=== PATIENT | male | born 1960 | race Caucasian/White ===

== ENCOUNTER 2021-06-07 09:55 | Outpatient (RCR) | payer OTHER, SELFPAY ==
--- NOTE | 2021-06-07 11:03 | PTOPEVAL ---
Thank you for referring Julio Rosado to [facility].? The patient is scheduled to be seen for therapy? ____x/week for ___ weeks. Please review, sign, date and return this plan of care STAR. I agree with and certify that the following plan of care is medically necessary. Referring Physician Date Admitting Provider: Attending Provider: Cole Lea, MD Referring Provider: *PT Outpatient Evaluation Start: 06/07/21 09:58 Freq: Status: Active Protocol: Document 06/07/21 10:04 [facility] (Rec: 06/07/21 10:59 [facility] [id number]) Therapy Assessment Status Assessment Status Assessment Status Evaluation Evaluation Information Problem Diagnosis lower back pain, bilateral LE numbness Onset 05/24/21 Subjective Information patient reports he is coming Query Text:As Reported By Patient/ into therapy for severe Family lower back pain and numbness in the legs. 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 he reports he has been having pain for about 3-4 years. he reports his pain seems to be continuously getting worse. he reports he has to use a wall to help him stand up straight in the morning. he reports he is continuing to work. he reports he has not had any imaging taken of the lower back. he reports he did talk about having an MRI of the lower back, but nothing set up yet. he reportshe has increased pain in the lower back and increased numbness in the legs with everything. 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 he reports he is able to continue worknig and performing house hold chores pushing through his pain. he reports the numbness was in both les initially, but has only gotten worse in the R LE. he reports at times he is only able to walk about 20 feet prior to having increased
--- NOTE | 2021-06-07 11:14 | PTOPEVAL ---
Thank you for referring Julio Rosado to [facility].? The patient is scheduled to be seen for therapy? ____x/week for ___ weeks. Please review, sign, date and return this plan of care STAR. I agree with and certify that the following plan of care is medically necessary. Referring Physician Date Admitting Provider: Attending Provider: Cole Lea, MD Referring Provider: *PT Outpatient Evaluation Start: 06/07/21 09:58 Freq: Status: Active Protocol: Document 06/07/21 10:04 [facility] (Rec: 06/07/21 10:59 [facility] [id number]) Therapy Assessment Status Assessment Status Assessment Status Evaluation Evaluation Information Problem Diagnosis lower back pain, bilateral LE numbness Onset 05/24/21 Subjective Information patient reports he is coming Query Text:As Reported By Patient/ into therapy for severe Family lower back pain and numbness in the legs. 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 he reports he has been having pain for about 3-4 years. he reports his pain seems to be continuously getting worse. he reports he has to use a wall to help him stand up straight in the morning. he reports he is continuing to work. he reports he has not had any imaging taken of the lower back. he reports he did talk about having an MRI of the lower back, but nothing set up yet. he reportshe has increased pain in the lower back and increased numbness in the legs with everything. 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 he reports he is able to continue worknig and performing house hold chores pushing through his pain. he reports the numbness was in both les initially, but has only gotten worse in the R LE. he reports at times he is only able to walk about 20 feet prior to having increased
--- NOTE | 2021-08-02 16:10 | PCPTNOTE ---
patient has not been to therapy in over a month. as of this date, he will be dc'd from skilled PT services and all progress towards goals will be taken from his most recent evaluation/note. PB
== END 2021-06-21 09:05 | disposition home or self-care (01) ==
LOC: CHSPT 09:55
PROVIDERS: Visit Provider Family Medicine
DX: M54.10 Radiculopathy, site unspecified (principal)
CPT/HCPCS: 97014; 97110; 97161; G0283

== ENCOUNTER 2024-05-17 12:00 | Emergency (ER) | payer OTHER, SELFPAY ==
--- NOTE | ~2024-05-17 | CT_ITS ---
EXAMINATION: CT lumbar spine wo con DATE: 05/17/2024 12:31 INDICATION: Chronic low back pain. TECHNIQUE: Computed tomography (CT) of the lumbar spine was performed without intravenous contrast. A utomated exposure control and iterative reconstruction technique were employed. The dose-length produ ct was 921.54 mGy-cm. COMPARISON: None FINDINGS: There is 10 degrees levoscoliosis of lumbar spine. There is mild chronic anterior wedging o f T12 vertebral body. There are chronic bilateral L5 pars defects. There is severely decreased disc h eight at L2-L3, mildly decreased disc height at L3-L4, severely decreased disc height at L4-L5, and m oderately decreased disc height at L5-S1. Osseous central spinal canal is developmentally small. The following disc levels are specifically discussed: L1-L2: The disc is bulging. There is moderate bilateral facet joint osteoarthritis. There is mild marnie ateral neural foraminal stenosis. There is mild central canal stenosis. L2-L3: The disc is bulging. There is moderate bilateral facet joint osteoarthritis. There is moderate right and mild left neural foraminal stenosis. There is moderate central canal stenosis. L3-L4: The disc is bulging. There is moderate right and mild left facet joint osteoarthritis. There i s mild bilateral neural foraminal stenosis. There is mild central canal stenosis. L4-L5: The disc is bulging. There is severe bilateral facet joint osteoarthritis. There is moderate b ilateral neural foraminal stenosis. There is mild central canal stenosis. L5-S1: The disc is bulging. There is severe bilateral facet joint osteoarthritis. There is moderate b ilateral neural foraminal stenosis. There is no central canal stenosis. IMPRESSION: 1. Severe lumbar spondylosis. 2. Lumbar levoscoliosis. 3. Chronic bilateral L5 pars defects. Reviewed, dictated and finalized at location A.
[2024-05-17 12:02] VITALS: BP 122/83; PULSE 81; RESP 20; TEMP 36.3; O2SAT 96
--- NOTE | 2024-05-17 12:16 | ED.GENADULT ---
HPI - General Adult General Chief complaint: Back Pain/Injury Stated complaint: back pain History of Present Illness HPI narrative: This is a 63-year-old male presenting with back pain. Patient says he has had back pain for years although it is acutely worse today. Describes pain is an achy pain that is bandlike across his lower back. He is having trouble sleeping. There was no preceding traumatic event or injury. N radiation down his legs. No history of cancer, IV drug abuse, lower extremity weakness, urinary retention bowel incontinence. Patient has seen his chiropractor multiple times for this complaint. He had an appointment to see his primary care physician for this yesterday and then did not go to his appointment because his pain was too bad. Patient denies fevers chest pain difficulty breathing abdominal pain weight loss lower extremity weakness. patient said he took 1 dose of Tylenol yesterday and it did not work so he did take anymore. Related Data Allergies Allergy/AdvReac Type Severity Reaction Status Date / Time Penicillins Allergy Unknown NAUSEA Unverified 03/20/14 14:54 [facility] Past Medical History Medical History (Updated 05/17/24 @ 12:24 by Dev Smith MD) CAD (coronary artery disease) HTN (hypertension) Exam Narrative: APPEARANCE: No apparent distress. Head: atraumatic. EYES: EOMI, NOSE: Atraumatic NECK/BACK: No midline L-spine tenderness no significant point tenderness, overlying skin changes RESPIRATORY: No increased rate of breathing CARDIOVASCULAR: RRR, ABDOMINAL: Non-distended MUSCULOSKELETAl: No obvious deformities NEURO: Alert. Sensation light touch, motor function cerebellar function intact for 4 extremities. Gait exam was normal. SKIN:: Warm, dry. Normal color PSYCHIATRIC: Normal affect Course Vital Signs Vital signs: Vital Signs Temperature 97.4 F L 05/17/24 12:02 Pulse Rate 81 05/17/24 12:02 Respiratory Rate 20 05/17/24 12:02 Blood Pressure 122/83 05/17/24 12:02 Pulse Oximetry 96 05/17/24 12:02 Oxygen Delivery Room Air 05/17/24 12:02 Temperature 97.4 F L 05/17/24 12:02 Pulse Rate 81 05/17/24 12:02 Respiratory Rate 20 05/17/24 12:02 Blood Pressure 122/83 05/17/24 12:02 Pulse Oximetry 96 05/17/24 12:02 Oxygen Delivery Room Air 05/17/24 12:02 Medical Decision Making MDM Narrative Medical decision making narrative: -Course: 63-year-old male presenting with acute on chronic back pain. Vital signs stable. Patient is well-appearing. He is ambulating around the room with minimal difficulty. CT showed significant degenerative changes in his lower back. No neurologic findings exam. Patient treated with Tylenol Robaxin and a lidocaine patch. Patient discharged follow up with his primary care physician on . -DDX includes but is not limited to: Lumbago, neoplasm, arthritis -Co-morbidities complicating care: heart disease hypertension -Independent interpretation of studies: CT L spine 1. Severe lumbar spondylosis. 2. Lumbar levoscoliosis. 3. Chronic bilateral L5 pars defects. -Interventions: Tylenol, Robaxin, lidocaine -Shared decision making / Disposition:Discharged -RX: Tylenol, Robaxin, lidocaine Vital Signs Vital Signs: Vital Signs Temperature 97.4 F L 05/17/24 12:02 Pulse Rate 81 05/17/24 12:02 Respiratory Rate 20 05/17/24 12:02 Blood Pressure 122/83 05/17/24 12:02 Pulse Oximetry 96 05/17/24 12:02 Oxygen Delivery Room Air 05/17/24 12:02 Temperature 97.4 F L 05/17/24 12:02 Pulse Rate 81 05/17/24 12:02 Respiratory Rate 20 05/17/24 12:02 Blood Pressure 122/83 05/17/24 12:02 Pulse Oximetry 96 05/17/24 12:02 Oxygen Delivery Room Air 05/17/24 12:02 Discharge Plan Discharge Clinical Impression: Back pain Patient Disposition: Home, Self-Care Condition: Stable Instructions: Antibiotic Form, Back Pain (ED) Additional Instructions: You were seen
[2024-05-17] MEDS: ACETAMINOPHEN 500 MG TABLET 1000 MG PO (12:22)
[2024-05-17] MEDS: IBUPROFEN 400 MG TABLET 800 MG PO (12:23)
[2024-05-17] MEDS: methocarbamoL 750 MG TABLET 1500 MG PO (12:23)
[2024-05-17] MEDS: LIDOCAINE 5% PATCH 1 PATCH TRANSDERM (12:24)
--- NOTE | 2024-05-17 12:41 | PC.NURSE ---
pt laying down on cot. call padron in reach. declined blanket offered at this time
== END 2024-05-17 12:50 | disposition home or self-care (01) ==
LOC: CHSED 12:49
PROVIDERS: Emergency Provider Emergency Medicine; PCP Family Medicine
DX: M54.50 Low back pain, unspecified (principal); I25.10 Atherosclerotic heart disease of native coronary artery without angina pectoris; I10 Essential (primary) hypertension
CPT/HCPCS: 72131; 99284; A9270

== ENCOUNTER 2025-01-24 16:12 | Emergency (ER) | payer OTHER, SELFPAY ==
[2025-01-24] VITALS (22 sets, daily range): BP systolic 152–170; BP diastolic 74–85; PULSE 68–83; RESP 16–20; TEMP 36.9; O2SAT 93–99
--- NOTE | 2025-01-24 16:17 | ED.ABDPAIN ---
HPI - Abdominal Pain General Chief Complaint: Abdominal Pain Stated Complaint: abd pain Time Seen by Provider: 01/24/25 16:17 Source: patient Mode of arrival: ambulatory Limitations: no limitations History of Present Illness HPI narrative: Patient is a 64-year-old male with lower abdominal pain for the past week. He had a bowel movement 4 days ago. He has been having some gas and loose stool from laxatives. Otherwise the pain is more so on the left than the right. No nausea vomiting or diarrhea except loose stool from the laxatives per patient history. Patient did have a prior abdominal hernia midline to the left when he was 3 years of age. Otherwise no other surgeries. Associated bright red blood per rectum 1 time in the beginning of this process about a week ago. patient taking Plavix for a stent /CAD. MD elicited complaint: abdominal pain Pertinent past history: constipation and myocardial infarction ( Stent) Onset (ago): week(s) ( 1) Pain Consistency: constant and colicky Location: diffuse, RLQ, LLQ and suprapubic Severity: moderate Pain scale (0-10): 5 Quality: cramping and sharp Radiation: none Migration to: no migration Exacerbating factors: nothing Relieving factors: nothing Context: confirms other ( patient has abdominal pain getting worse over the past week specifically at the left lower quadrant) Associated symptoms: diarrhea ( specifically since laxatives), constipation ( last BM 4 days ago), hematochezia ( 1 time) and anorexia ( patient has had a same which in the past 2 days total) Treatments prior to arrival: other ( none) Related Data Home Medications ?Medication ?Instructions ?Recorded ?Confirmed ?Last Taken ?Type atenolol 50 mg tablet mg PO 11/14/24 11/14/24 Unknown History atorvastatin 40 mg tablet mg PO 11/14/24 11/14/24 Unknown History losartan 100 mg tablet mg PO 11/14/24 11/14/24 Unknown History clopidogrel 75 mg tablet mg 01/24/25 Unknown History diltiazem HCl 180 mg capsule,24 mg PO 01/24/25 Unknown History hr,extended release Allergies Allergy/AdvReac Type Severity Reaction Status Date / Time Penicillins Allergy Unknown NAUSEA Verified 01/24/25 16:35 Review of Systems Review of Systems: All systems reviewed & are unremarkable except as noted in HPI and below Constitutional: Constitutional: Reports no additional constitutional complaints Eyes: Eyes: Reports no additional eye complaints ENT: Reports system reviewed and no additional complaints, except as documented Cardiovascular: Cardiovascular: Reports no additional cardiovascular complaints Respiratory: Respiratory: Reports no additional respiratory complaints Gastrointestinal: Gastrointestinal: Reports no additional gastrointestinal complaints Genitourinary: Genitourinary: Reports no additional male genitourinary complaints Musculoskeletal: Musculoskeletal: Reports no additional musculoskeletal complaints Integumentary/Breasts: Skin/Breast: Reports system reviewed and no additional complaints, except as docu Neurologic: Reports system reviewed and no additional complaints, except as documented Psychiatric: Psychiatric: Reports no additional psychiatric complaints Endocrine: Endocrine: Reports no additional endocrine complaints Hematologic/Lymphatic: Hematologic/Lymphatic: Reports no additional hematologic/lymphatic complaints Allergic/Immunologic: Allergic/Immunologic: Reports no additional allergic/immunologic complaints [facility] Past Medical History Medical History HTN (hypertension) CAD (coronary artery disease) Social History Social History Smoking status: Heavy tobacco smoker Exam Const: General: healthy appearing Nutritional Appearance: well nourished Orientation/consciousness: patient oriented x3 Limitations: no limitations HENMT: Head: normal to inspection Ears: external ears normal Face/Nose/Sinus: Normal external nose present Eyes: Conjunctivae: conjunctivae normal Pupils: Equal, round and reactive pupils present EOM: EOMs intact bilaterally Neck: Neck: normal visual inspection Chest: Chest palpation & inspection: normal inspection of the chest Resp: Effort & Inspection: normal respiratory effort and not labored Auscultation: clear to auscultation bilaterally and no crackles Cardio: Rate: regular rate Rhythm: regular rhythm Heart sounds: no murmurs GI: Inspection: non-distended GI Palp: Yes Soft to palpation, Yes Tenderness to palpation present (GI) ( Left lower quadrant, suprapubic and right lower quadrant), No Guarding due to palpation present (GI), No Rigid due to palpation, No Hernia present, No Palpable mass present and Yes Rebound tenderness present ( with equivocal) Auscultation: normal bowel sounds : General: Yes bladder normal to palpation Back/Spine/Pelvis: Back: no CVA tenderness Skin: General skin exam: normal color Rashes: no rashes Wounds: no wounds Neuro: General: patient oriented x3 Cranial nerves: Yes Nystagmus not present Speech: normal speech Extrem: General: normal to inspection Psych: Mental Status: mental status grossly normal Affect: normal affect Attitude: cooperative Course Vital Signs Vital signs: Vital Signs Pulse Rate 83 01/24/25 16:15 Respiratory Rate 20 01/24/25 16:15 Blood Pressure 170/84 H 01/24/25 16:15 Pulse Oximetry 93 01/24/25 16:15 Oxygen Delivery Room Air 01/24/25 16:15 Temperature 36.9 C 01/24/25 16:25 Pulse Rate 72 01/24/25 18:36 Respiratory Rate 20 01/24/25 18:36 Blood Pressure 169/85 H 01/24/25 18:36 Pulse Oximetry 94 01/24/25 18:36 Oxygen Delivery Room Air 01/24/25 18:36 MDM - Abdominal Pain MDM Narrative Medical decision making narrative: patient is a 64-year-old male with abdominal pain. We will do an abdominal pain workup at this time. Patient has a abscess on the colon and we will need to transfer at this time for higher level medical care. Lab Data Attestation: I reviewed the patient's lab results. 01/24/25 16:40 01/24/25 16:40 Labs: Lab Results 01/24/25 01/24/25 01/24/25 Range/Units 16:40 16:41 17:34 WBC 16.0 H (4.8-10.8) K/mm3 RBC 4.55 L (4.70-6.10) M/mm3 Hgb 13.9 L (14.0-18.0) g/dL Hct 42.2 (40.0-54.0) % MCV 92.7 (78.0-102.0) fL MCH 30.5 (27.0-31.0) pg MCHC 32.9 (32-36) g/dL RDW 13.4 (11.6-14.4) % Plt Count 355 (150-420) K/mm3 MPV 10.1 (8.7-11.0) fl Immature Gran % (Auto) 0.5 H (0.0-0.0) % Neut % (Auto) 81.3 H (50.0-70.0) % Lymph % (Auto) 9.9 L (18.0-42.0) % Hitchcock % (Auto) 7.4 (2.0-11.0) % Eos % (Auto) 0.6 L (1.0-6.0) % Baso % (Auto) 0.3 (0.0-1.0) % Lymph # (Auto) 1.58 (1.10-4.50) K/mm3 Hitchcock # (Auto) 1.18 H (0.10-0.90) K/mm3 Eos # (Auto) 0.10 (0.02-0.50) K/mm3 Baso # (Auto) 0.05 (0.00-0.10) K/mm3 Abs Immat Gran (auto) 0.08 H (0.00-0.00) K/mm3 Absolute Neuts (auto) 12.96 H (1.70-7.20) K/mm3 Absolute Nucleated RBC 0.00 (0.00-0.00) K/mm3 Nucleated RBC % 0.0 (0-0.0) % PT 10.9 (9.50-12.1) Seconds INR 1.0 APTT 31.1 H (23.9-30.70) Sec Sodium 140 (136-145) mmol/L Potassium 3.5 (3.5-5.1) mmol/L Chloride 101 (98-108) mmol/L Carbon Dioxide 28 (21-32) mmol/L Anion Gap 11 (4-12) mmol/L BUN 16 (7-18) mg/dL Creatinine 1.17 (0.70-1.30) mg/dL Estim Creat Clear Calc 57 ml/min Estimated GFR > 60 (59 - ) Glucose 105 H (70-99) mg/dL Calculated Osmolality 291 (285-295) mOsm/kg Lactic Acid 1.4 (0.4-2.0) mmol/L Calcium 8.9 (8.5-10.1) mg/dL Total Bilirubin 0.7 (0.00-1.00) mg/dL AST 10 L (15-37) U/L ALT 18 (16-63) U/L Alkaline Phosphatase 88 (46-116) U/L Troponin I 10.8 (0.00-60.4) ng/L Total Protein 6.9 (6.4-8.2) g/dL Albumin 2.9 L (3.4-5.0) g/dL Lipase 21 (16-77) U/L Urine Color Light yellow (Yellow) Urine Appearance Clear (Clear) Urine pH 6.0 (5.0-8.0) Ur Specific [place] 1.015 (1.010-1.020) Urine Protein Negative (Negative) Urine Glucose (UA) Negative (Negative) Urine Ketones Trace H (Negative) Ur Blood (Man) 1+ H (Negative) Urine Nitrate Negative (Negative) Urine Bilirubin Negative (Negative) Urine Urobilinogen 0.2 (0.2-1.0) mg/dL Leukocyte Esterase Rfl Negative (Negative) NAMITA/UL Urine RBC 0-2 (0-2) /hpf Urine WBC 0-3 (0-3) /hpf Urine Bacteria Trace (None) /hpf Imaging Data Attestation: I personally reviewed and interpreted this imaging study as follows: Radiologist's impression: ITS Impressions Abdomen/Pelvis CT 01/24/25 17:41 IMPRESSION: 1. Diverticulitis of the sigmoid colon with adjacent abscess formation seen on the left. 2. Left kidney lower pole stone. 3. Multiple tiny hepatic cysts. ECG Data EKG #1: Attestation: I personally reviewed and interpreted this ECG as follows: ECG completion date: 01/24/25 ECG completion time: 17:05 normal rate, sinus rhythm, no ectopy, non-specific ST changes, normal QRS, normal QT and left axis Discharge Plan Discharge Clinical Impression: Diverticulitis, Abscess of sigmoid colon Patient Disposition: Acute Care Hospital Condition: Stable Patient Language: Turkish Prescriptions: No Action diltiazem HCl 180 mg capsule,extended release 24hr PO clopidogrel 75 mg tablet acetaminophen 500 mg tablet 1,000 mg PO TID PRN (Reason: john) 7 Days Qty: 42 0RF atorvastatin 40 mg tablet PO atenolol 50 mg tablet PO losartan 100 mg tablet PO prednisone 20 mg tablet 20 mg PO DAILY Qty: 14 1RF Rx Instructions: take 1 tablet daily with breakfast for 10 days and then take 1 every other day for 8 days Follow-up/Referrals: Venu,MD Cole [Primary Care Provider] - Time of Disposition: 18:25
[2025-01-24 16:45] LABS: Basophils Absolute Auto 0.05 K/mm3 (0.00-0.10); Basophils Percent Auto 0.3 % (0.0-1.0); Eosinophils Percent Auto 0.6 % (1.0-6.0); Hematocrit 42.2 % (40.0-54.0); Hemoglobin 13.9 g/dL (14.0-18.0); Immature Granulocyte Absolute 0.08 K/mm3 (0.00-0.00); Immature Granulocyte Percent A 0.5 % (0.0-0.0); Lymphocytes Absolute Auto 1.58 K/mm3 (1.10-4.50); Lymphocytes Percent Auto 9.9 % (18.0-42.0); Mean Corpuscular HGB Conc 32.9 g/dL (32-36); Mean Corpuscular Hemoglobin 30.5 pg (27.0-31.0); Mean Corpuscular Volume 92.7 fL (78.0-102.0); Mean Platelet Volume 10.1 fl (8.7-11.0); Monocytes Absolute Auto 1.18 K/mm3 (0.10-0.90); Monocytes Percent Auto 7.4 % (2.0-11.0); Neutrophils Absolute Auto 12.96 K/mm3 (1.70-7.20); Neutrophils Percent Auto 81.3 % (50.0-70.0); Platelet Count Result 355 K/mm3 (150-420); Red Blood Count 4.55 M/mm3 (4.70-6.10); Red Cell Distribution Width 13.4 % (11.6-14.4)
[2025-01-24 17:00] LABS: Partial Thromboplastin Time 31.1 Sec (23.9-30.70); Prothrombin Time 10.9 Seconds (9.50-12.1)
[2025-01-24 17:03] LABS: Alanine Aminotransferase 18 U/L (16-63); Albumin Level 2.9 g/dL (3.4-5.0); Alkaline Phosphatase 88 U/L (46-116); Anion Gap 11 mmol/L (4-12); Aspartate Amino Transferase 10 U/L (15-37); Bilirubin,Total 0.7 mg/dL (0.00-1.00); Blood Urea Nitrogen 16 mg/dL (7-18); Calcium 8.9 mg/dL (8.5-10.1); Carbon Dioxide 28 mmol/L (21-32); Chloride 101 mmol/L (98-108); Estimated CRCL calculation 57 ml/min; Estimated Glomerular Filt Rate > 60; Glucose 105 mg/dL (70-99); Lipase 21 U/L (16-77); Osmolality Calculated 291 mOsm/kg (285-295); Potassium 3.5 mmol/L (3.5-5.1); Sodium 140 mmol/L (136-145); Total Protein 6.9 g/dL (6.4-8.2); Troponin I 10.8 ng/L (0.00-60.4)
[2025-01-24 17:34] LABS: Lactic Acid Reflex 1.4 mmol/L (0.4-2.0)
[2025-01-24 17:43] LABS: Add Urine Microscopic? YES; Appearance Urine Clear (Clear); Bilirubin Urine Negative (Negative); Blood Urine 1+ (Negative); Color Urine Light Yellow (Yellow); Glucose Urine UA Negative (Negative); Ketones Urine Trace (Negative); Leukocyte Esterase Ur Negative LEU/UL (Negative); Nitrate Urine Negative (Negative); Protein Urine Negative (Negative); Specific Grav Ur 1.015 (1.010-1.020); Urobilinogen Urine 0.2 mg/dL (0.2-1.0)
[2025-01-24 17:53] LABS: Bacteria Urine Trace /hpf; RBC Urine 0-2 /hpf (0-2); WBC Urine 0-3 /hpf (0-3)
--- NOTE | 2025-01-24 19:10 | PC.NURSE ---
report to roxi guido
[2025-01-24] MEDS: metroNIDAZOLE 500 MG/ISO 100ML 500 MG/100 ML BAG 100 MG IVPB (19:27)
[2025-01-24] MEDS: CIPROFLOXACIN 400 MG/D5W 200ML 200 ML 200 MG IVPB (19:27)
[2025-01-25] VITALS (51 sets, daily range): BP systolic 119–170; BP diastolic 53–88; PULSE 65–79; RESP 16–18; TEMP 36.7–36.8; O2SAT 93–99
[2025-01-25] MEDS: CIPROFLOXACIN 400 MG/D5W 200ML 200 ML 200 MG IVPB (03:50)
[2025-01-25] MEDS: metroNIDAZOLE 500 MG/ISO 100ML 500 MG/100 ML BAG 100 MG IVPB ×2 (03:51→11:19)
[2025-01-25 06:36] LABS: Basophils Absolute Auto 0.04 K/mm3 (0.00-0.10); Basophils Percent Auto 0.3 % (0.0-1.0); Eosinophils Absolute Auto 0.21 K/mm3 (0.02-0.50); Eosinophils Percent Auto 1.4 % (1.0-6.0); Hematocrit 41.7 % (40.0-54.0); Hemoglobin 13.6 g/dL (14.0-18.0); Immature Granulocyte Absolute 0.06 K/mm3 (0.00-0.00); Immature Granulocyte Percent A 0.4 % (0.0-0.0); Lymphocytes Absolute Auto 1.76 K/mm3 (1.10-4.50); Mean Corpuscular HGB Conc 32.6 g/dL (32-36); Mean Corpuscular Hemoglobin 30.4 pg (27.0-31.0); Mean Corpuscular Volume 93.1 fL (78.0-102.0); Mean Platelet Volume 9.9 fl (8.7-11.0); Monocytes Absolute Auto 1.14 K/mm3 (0.10-0.90); Monocytes Percent Auto 7.8 % (2.0-11.0); Neutrophils Absolute Auto 11.49 K/mm3 (1.70-7.20); Neutrophils Percent Auto 78.1 % (50.0-70.0); Platelet Count Result 352 K/mm3 (150-420); Red Blood Count 4.48 M/mm3 (4.70-6.10); Red Cell Distribution Width 13.4 % (11.6-14.4); White Blood Count 14.7 K/mm3 (4.8-10.8)
[2025-01-25 06:45] LABS: Anion Gap 10 mmol/L (4-12); Blood Urea Nitrogen 14 mg/dL (7-18); Calcium 8.5 mg/dL (8.5-10.1); Carbon Dioxide 29 mmol/L (21-32); Chloride 101 mmol/L (98-108); Estimated CRCL calculation 57 ml/min; Estimated Glomerular Filt Rate > 60; Glucose 106 mg/dL (70-99); Osmolality Calculated 290 mOsm/kg (285-295); Potassium 3.6 mmol/L (3.5-5.1); Sodium 140 mmol/L (136-145)
[2025-01-25] MEDS: DEXTROSE 5%/0.45% SOD CHL 1,000 ML 100 ML IV CONT (07:10)
--- NOTE | 2025-01-25 09:30 | PC.NURSE ---
Per ERP Patient allowed sip of water with medication, Patient remains NPO of drinks and food.
[2025-01-25] MEDS: LOSARTAN POTASSIUM 50 MG TABLET 100 MG PO (09:32)
[2025-01-25] MEDS: dilTIAZem HCL CD 180 MG CAP.24HR PO (09:33)
[2025-01-25] MEDS: atenoloL 50 MG TABLET PO (09:33)
--- NOTE | 2025-01-25 10:37 | PC.NURSE ---
RN spoke with supervisor screen making at [facility], States no beds at this time, has boarders in the ER, Unsure if it will be today for transfer he is unsure of discharges at this time.
--- NOTE | 2025-01-25 10:58 | PC.NURSE ---
Patient states to try [facility] in [place], and then branch out to other [place] locations.
[2025-01-25] MEDS: PROCHLORPERAZINE EDISYLATE 10 MG/2 ML VIAL IV PUSH (11:37)
--- NOTE | 2025-01-25 11:40 | PC.NURSE ---
Patient experienced burning during administration, RN stopped pushing medication, Line flushed. ERP notified. Will monitor for signs of allergic reaction.
--- NOTE | 2025-01-25 11:42 | PC.NURSE ---
Patient reports pain has gone away. wants to wait for medication in case it comes back. ERP aware.
--- NOTE | 2025-01-26 12:40 | PC.NURSE ---
PRELIMINARY BLOOD CULTURE NO GROWTH TO DATE
== END 2025-01-25 12:17 | disposition short-term general hospital (02) ==
PROVIDERS: Emergency Medicine; Emergency Provider Internal Medicine Critical Care Medicine; PCP Family Medicine
DX: K57.20 Diverticulitis of large intestine with perforation and abscess without bleeding (principal); I25.2 Old myocardial infarction; I25.10 Atherosclerotic heart disease of native coronary artery without angina pectoris; I10 Essential (primary) hypertension; F17.200 Nicotine dependence, unspecified, uncomplicated
CPT/HCPCS: 36415; 74177; 80048; 80053; 81001; 83605; 83690; 84484; 85025; 85610; 85730; 87040; 93005; 99285; A9270; J0744; J0780; J1836; Q9967

== ENCOUNTER 2025-02-07 07:54 | Outpatient (CLI) | payer OTHER, SELFPAY ==
--- NOTE | ~2025-02-07 | CT_ITS ---
CT of the Abdomen and Pelvis: Indication: Diverticulitis with abscess Technique: 2.5 mm axial scans were obtained through the abdomen and pelvis following intravenous adm inistration of 100 cc of Omnipaque 350. Dose reduction technique was used on this scan by utilizing a utomated exposure control and iterative reconstruction technique. The dose-length product (DLP) was 6 08.14 mGy-cm. COMPARISON: 01/24/2025 Findings: Scans through the lung bases are unremarkable. The liver, spleen, pancreas, gallbladder, adrenals and right kidney are within normal limits. 3 mm no nobstructing left renal stone present. There are atherosclerotic calcifications of the aorta. No lym phadenopathy. Status post percutaneous drainage of left lower quadrant pericolonic abscess, with percutaneous drain age catheter in place. The abscess is markedly reduced as compared to prior exam, probable small resi dual fluid collection about the pigtail catheter measuring approximately 2.1 x 0.9 cm in size. Underl checo wall thickening and inflammatory change the sigmoid colon is compatible with underlying divertic ulitis. Images through the pelvis were performed. Urinary bladder wall thickening is likely related to underd istention. Prostate gland and seminal vesicles are unremarkable. No ascites. Small fat-containing rig ht inguinal hernia present. Bilateral L5 pars interarticularis defects are present. Impression: Marked interval reduction in left lower quadrant pericolonic abscess, with percutaneous drainage cath eter in place. Underlying sigmoid diverticulitis again present. Reviewed, dictated and finalized at [facility]. Impression: Marked interval reduction in left lower quadrant pericolonic abscess, with perc utaneous drainage catheter in place. Underlying sigmoid diverticulitis again present.
--- OUTSIDE RECORDS SUMMARY | 2025-02-07 08:04 | XMS_ITS | Encounter Summary ---
Author Organization [facility] Address Formerly [facility], [id number] [place] [address] Care Team Providers Care Machine Fixer Name Role Phone Cole Lea MD Primary Care Provider Javier Harrell MD Unavailable Unavailab le Encounter Details Date Type Department Care Team (Late st Contact Info) Description 05/13/2013 Abstract [facility] [address] [id number] Javier Harrell MD Social History Tobacco Use Types Packs/Day Years Used Date Smoking Tobacco: Smoker, Current Status Unknown Alcohol Use Standard Drinks/Week Comments No 0 (1 standard drink = 0.6 oz pur e alcohol) Sex and Gender Information Value Date Recorded Sex Assigned at Not on file Legal Sex Male 6:02 PM CDT Gender Identity Not on file Sexual Orientation Not on file Occupation Industry Job Start Date Job End Date Unemployed Not on file Not on file Not on file documented as of this encounter Plan of Treatment Not on file documented as of this encounter Visit Diagnoses Not on filedocumented in this encounter Care Teams Machine Fixer Relationship Specialty Start Date End Date Cole Lea MD [address] [place] [phone] PCP - General FAMILY PRACTICE 06/07/17 Javier Harrell MD [address] [place] [phone] [employer] CARDIOVASCULAR DISEASE 06/09/17 documented as of this encounter
--- OUTSIDE RECORDS SUMMARY | 2025-02-07 08:04 | XMS_ITS | Clinical Summary ---
Author Organization [facility] Address [address] [place] [id number] Care Team Providers Care College Director Name Role Phone Cole Lea MD Primary Care Provider Javier Harrell MD Unavailable Unavailab le Allergies Active Allergy Reactions Criticality Noted Date Comments Penicillins Unknown 05/06/2016 Sulfamethoxazole-Trimethoprim Unknown 2015 Medications atenolol 50 MG tablet Take 1 tablet by mouth daily. 08/07/2012 Active diltiazem 24 hr 180 MG capsule Take 180 mg by mouth daily. Active aspirin 81 MG chewable tablet Chew 81 mg by mouth daily. Active ATORVASTATIN 20 MG tablet TAKE ONE TABLET BY MOUTH DAILY 90 tablet 07/05/2018 Active CLOPIDOGREL 75 MG tablet TAKE ONE TABLET BY MOUTH DAILY 90 tablet 07/23/2018 Active Active Problems Problem Noted Date Diagnosed Date Coronary artery disease invo lving [place] coronary artery of [place] heart without angina pectoris 06/12/2017 Hyperlipidemia, mixed 06/12/2017 Essential (primary) hypertension 06/12/2017 Claudication 06/12/2017 Family History Medical History Relation Comments Heart Attack Father Stent Cardiac Father Stroke Father Heart Disease Other Family history i s positive for premature coronary heart disease. Relation Status Comments Father Other Social History Tobacco Use Types Packs/Day Years Used Date Smoking Tobacco: Every Day Cigarettes Last attempted to quit: 08/04/2017 Smokeless Tobacco: Never Alcohol Use Standard Drinks/Week Comments No 0 (1 standard drink = 0.6 oz pur e alcohol) Sex and Gender Information Value Date Recorded Sex Assigned at Not on file Legal Sex Male 6:02 PM CDT Gender Identity Not on file Sexual Orientation Not on file Occupation Industry Job Start Date Job End Date Unemployed Not on file Not on file Not on file Last Filed Vital Signs Vital Sign Reading Time Taken Comments Blood Pressure 145/86 10/23/2017 2:03 PM [employer] Pulse 78 10/23/2017 2:03 PM [employer] Temperature - - Respiratory Rate 20 10/23/2017 2:03 PM [employer] Oxygen Saturation - - Inhaled Oxygen Concentration - - Weight 85.3 kg (188 lb) 10/23/2017 2:03 PM [employer] Height 165.1 cm (5' 5 ) 10/23/2017 2:03 PM [employer] Body Mass Index 31.28 10/23/2017 2:03 PM [employer] Plan of Treatment Health Maintenance Due Date Last Done Comments ASCVD Statin 1960 Colorectal Cancer Screening Colonoscopy (10 Years) 1960 Annual Physical 1963 Pneumococcal Vaccine: Pediatrics (0 to 5 Years) and At-Risk Patients (6 to 64 Years) (1 of 2 - PCV) 1966 Hepatitis C 1978 DTaP, Tdap and Td Vaccines ( 1 - Tdap) 1979 Zoster Vaccines (1 of 2) 2010 ASCVD LDL 08/05/2018 08/05/2017, 07/06/2017, 01/28/2010 RSV Immunization or 60+ Years (1 - Risk 60-74 years 1-dose series) 2020 COVID-19 Vaccine (2023-2 5 season) 2024 Influenza Adult (#1) 2024 Meningococcal B Vaccine Aged Out No l onger eligible based on patient's age to complete this topic Meningococcal Vaccine Aged Out No ron liv eligible based on patient's age to complete this topic RSV Immunizations Under 20 Months Aged Out No longer eligible b ased on patient's age to complete this topic Procedures Procedure Name Priority Date/Time Associated Diagnosis Comments LIPID PANEL EXTENDED TIMED 08/05/2017 4:01 AM CDT from Last 3 Months or Most Recently Relevant to Health Maintenance Results * (ABNORMAL) LIPID PANEL EXTENDED (08/05/2017 4:01 AM CDT) HDL 29(L) >39 MG/DL 08/05/2017 3:32 AM CDT [facility] Comment:LOW: <40 LIPOPROTEIN (A) 51(H) 0 - 30 MG/DL 08/05/2017 3:32 AM CDT [facility] DIRECT LDL 66 0 - 129 MG/DL 08/05/2017 3:32 AM T [facility] Comment:<100 OPTIMAL CHOLESTEROL 109 0 - 200 MG/DL 08/05/2017 3:32 AM CDT [facility] Comment:DESIRABLE: <200 TRIGLYCERIDES 117 0 - 149 MG/DL 08/05/2017 3:32 AM CDT [facility] Comment:<150 NORMAL VLDL CALCULATION 14 MG/DL 08/05/20 17 3:32 AM T [facility] CHOL/HDL RATIO 3.8 08/05/2017 3:32 AM T [facility] LDL/HDL 2.3 08/05/2017 3:32 AM CDT [facility] APOLIPOPROTEIN B 61 49 - 173 MG/DL 08/05/2017 3:32 AM T [facility] NON HDL CHOLESTEROL 80 MG/DL 08/05/2017 3:32 AM T [facility] HOMOCYSTEINE (U) 9 MCMOL/L 08/05/20 17 3:47 AM [facility] HOMOCYSTINE NORMALS NORMAL LEVEL IS LESS THAN OR EQUAL TO 9 08/04/2017 11:02 PM T [facility] Comment: MILD IS 10 TO 15 UMOL/L MODERATE IS 16 TO 30 UMOL/L MODERATE TO SEVERE IS 31 TO 100 UMOL/L SEVERE IS GREATER THAN 100 UMOL/L PLASMA SPECIMEN / Unknown 08/05/2017 4:01 AM CDT 08/05/2017 3:03 AM CDT us Generic Conversion Md [facility] Final R esult [facility] [address] [place] [address], [id number] from Last 3 Months or Most Recently Relevant to Health Maintenance Insurance MEDICAID Care Teams College Director Relationship Specialty Start Date End Date Cole Lea MD [address] [place] [phone] PCP - General FAMILY PRACTICE 06/07/17 Javier Harrell MD [address] [place] [phone] [place] [employer] CARDIOVASCULAR DISEASE 06/09/17
--- OUTSIDE RECORDS SUMMARY | 2025-02-07 08:04 | XMS_ITS | Encounter Summary ---
Author Organization [facility] Address [facility] [place] [address] Care Team Providers Care Field Support Specialist Name Role Phone Cole Lea MD Primary Care Provider Javier Harrell MD Unavailable Unavailab le Encounter Details Date Type Department Care Team (Late st Contact Info) Description 02/10/2018 Abstract [facility] CONVERSION [address] [place] [address] , Generic Conversion, Social History Tobacco Use Types Packs/Day Years [...] on filedocumented in this encounter Care Teams Field Support Specialist Relationship Specialty Start Date End Date Cole Lea MD [address] [place] [phone] PCP - General FAMILY PRACTICE 06/07/17 Javier Harrell MD [address] [place] [phone] [place] [employer] Assistant CARDIOVASCULAR DISEASE 06/09/17 documented as of this encounter
--- OUTSIDE RECORDS SUMMARY | 2025-02-07 08:04 | XMS_ITS | Encounter Summary ---
Author Organization [facility] Address [facility] [place] [address] Care Team Providers Care Associate Professor Of Biostatistics Name Role Phone Cole Lea MD Primary Care Provider Javier Harrell MD Unavailable Unavailab le Encounter Details Date Type Department Care Team (Late st Contact Info) Description 05/04/2019 Abstract [facility] CONVERSION [address] [place] [id number] , Generic Conversion, Social History Tobacco Use [...] on filedocumented in this encounter Care Teams Associate Professor Of Biostatistics Relationship Specialty Start Date End Date Cole Lea MD [address] [place] [phone] PCP - General FAMILY PRACTICE 06/07/17 Javier Harrell MD [address] [place] [phone] [place] Associate Program Manager CARDIOVASCULAR DISEASE 06/09/17 documented as of this encounter
--- OUTSIDE RECORDS SUMMARY | 2025-02-07 08:04 | XMS_ITS | Clinical Summary ---
Author Organization [facility] Address [address] [place] [address] Phone Care Team Providers Care Millinery Blocker Name Role Phone Cole Lea MD Primary Care Provider [phone] Allergies Active Allergy Reactions Criticality Noted Date Comments Morphine Other (See Comments),Dizziness,Hea dache Low 01/29/2025 Feels worse Sulfamethoxazole-Trimet hoprim Unknown 05/06/2016 Medications dilTIAZem (CARDIZEM CD, CARTIA XT) 180 mg Controlled Delivery 24 hour capsule Take 180 mg by mouth daily. Active aspirin (PIPPA CHEWABLE) 81 mg Tablet, Chewable Take 81 mg by mouth daily. Active atenoloL (TENORMIN) 50 mg tablet Take 50 mg by mouth daily. Active clopidogreL (PLAVIX) 75 mg Tablet Take 75 mg by mouth daily. Active atorvastatin (LIPITOR) 40 mg tablet Take 40 mg by mouth daily. Active losartan (COZAAR) 100 mg tablet Take 100 mg by mouth daily. Active amoxicillin-clavul anate (AUGMENTIN) 875-125 mg tablet Take 1 Tablet by mouth every 12 hours for 14 days. 28 Tablet 5 3:39 PM COMMERCIAL ENGINEER 01/30/20 25 025 Active oxyCODONE (ROXICODONE) 5 mg tabletIndications: Abscess of sigmoid colon due to diverticulitis Take 1 Tablet (5 mg) by mouth every 8 hours as needed for Pain. Max Daily Amount: 15 mg 10 Tablet 5 3:39 PM COMMERCIAL ENGINEER 01/30/20 25 Active amoxicillin-clavul anate (AUGMENTIN) 875-125 mg tablet Take 1 Tablet by mouth every 12 hours for 14 days. 28 Tablet 01/30/20 25 025 Discontinued oxyCODONE (ROXICODONE) 5 mg tabletIndications: Abscess of sigmoid colon due to diverticulitis Take 1 Tablet (5 mg) by mouth every 8 hours as needed for Pain. Max Daily Amount: 15 mg 10 Tablet 01/30/20 25 025 Discontinued Active Problems Problem Noted Date Diagnosed Date HTN (hypertension), benign 01/27/2025 Dyslipidemia 01/27/2025 Abscess of sigmoid colon due to diverticulitis 0 01/25/2025 Abdominal pain, acute, left lower quadrant 01/25 Coronary artery disease invo lving [place] coronary artery of [place] heart without angina pectoris 06/12/2017 Essential (primary) hypertension 06/12/2017 Hyperlipidemia, mixed 06/12/2017 Encounters Date Type Department Care Team Description 02/04/2025 External Device Data [facility] ABSTRACTION Provider, Abstract 02/04/2025 External Device Data [facility] ABSTRACTION Provider, Abstract 02/03/2025 External Device Data [facility] ABSTRACTION Provider, Abstract 02/01/2025 External Device Data [facility] ABSTRACTION Provider, Abstract 01/31/2025 External Device Data [facility] ABSTRACTION Provider, Abstract 01/25/2025 4:39 PM COMMERCIAL ENGINEER - 01/29/2025 3:53 PM COMMERCIAL ENGINEER Hospital Encounter [facility] Trauma and Surgery [address] [place] [address] Naman White MD Krvavac, Armin, MD Lyubenova-Ivanov a, Mariya, MD Hughes, Theresa, MD Goering, Marino Carbajal MD Abscess of sigmoid colon due to diverticulitis Discharge Disposition: Home or Self Care 01/25/2025 Travel from Last 3 Months Family History Medical History Relation Name Comments Heart Disease Brother Heart Disease Father Relation Name Status Comments Brother Father Social History Tobacco Use Types Packs/Day Years Used Date Smoking Tobacco: Every Day Cigarettes 1 50.2 Started: 1974 Smokeless Tobacco: Never Tobacco Cessation:Ready to Q uit: No Alcohol Use Standard Drinks/Week Comments Never 0 (1 standard drink = 0.6 oz pur e alcohol) Feeling Safe Answer Date Recorded Are you in a relationship wi th someone who hurts you emotionally and/or physically? No 01/25/2025 Food Insecurity Answer Date Recorded Social/Environmental Concerns No concerns Transportation Needs Answer Date Record ed Social/Environmental Concerns No concerns Housing Stability Answer Date Recorded Social/Environmental Concerns No concerns Utility Needs Answer Date Recorded Social/Environmental Concerns No concerns Sex and Gender Information Value Date Recorded Sex Assigned at Not on file Legal Sex Male 11:12 AM COMMERCIAL ENGINEER Gender Identity Not on file Sexual Orientation Not on file Last Filed Vital Signs Vital Sign Reading Time Taken Comments Blood Pressure 121/72 01/29/2025 12:43 PM COMMERCIAL ENGINEER Pulse 68 01/29/2025 12:43 PM COMMERCIAL ENGINEER Temperature 36.3 C (97.4 F) 01/29/2025 12:43 PM COMMERCIAL ENGINEER Respiratory Rate 18 01/29/2025 12:43 PM COMMERCIAL ENGINEER Oxygen Saturation 96% 01/29/2025 12:43 PM COMMERCIAL ENGINEER Inhaled Oxygen Concentration - - Weight 86.2 kg (190 lb) 01/25/2025 1:52 PM COMMERCIAL ENGINEER Height 165.1 cm (5' 5 ) 01/25/2025 1:52 PM COMMERCIAL ENGINEER Body Mass Index 31.62 01/25/2025 1:52 PM COMMERCIAL ENGINEER Plan of Treatment Upcoming Encounters Date Type Department Care Team (Late st Contact Info) Description 02/10/2025 10:45 AM CDT Office Visit [facility] Trauma and General Surgery [address] [id number] Kalpana Summers, DO [address] [place] [address] Health Maintenance Due Date Last Done Comments Pre-Diabetes and Diabetes Screening 1960 DTAP/TDAP/TD VACCINES (1 - Tdap) 1979 Preventative Visit-Managed Medicaid 1979 COLORECTAL SCREENING 2005 Colorectal Cancer Screening 2005 FIT-DNA Q 3 years 2005 FIT/FOBT Q 1 year 2005 Flex Sig/CT Colonography Q 5 years 2005 Lung Cancer Screening 2010 ZOSTER VACCINE (1 of 2) 2010 RSV VACCINE (60+ or ) (1 - Risk 60-74 years 1-dose series) 2020 INFLUENZA VACCINE (#1) 2024 Procedures Procedure Name Priority Date/Time Associated Diagnosis Comments EXTRA TUBE (GREEN) Routine 01/29/2025 9: 45 AM COMMERCIAL ENGINEER EXTRA TUBE Routine 01/29/2025 9:45 AM COMMERCIAL ENGINEER CBC WITH DIFFERENTIAL Routine 01/29/2025 6:[address] ABSCESS DRAIN PERCUTANEOUS Routine 01/28/2025 3:32 PM COMMERCIAL ENGINEER ANAEROBIC/AEROBIC CULTURE W GRAM STAIN Routine 01/28/2025 3:19 PM COMMERCIAL ENGINEER EXTRA TUBE (GREEN) Routine 01/28/2025 11 :53 AM COMMERCIAL ENGINEER EXTRA TUBE Routine 01/28/2025 11:53 AM COMMERCIAL ENGINEER CBC WITH DIFFERENTIAL Routine 01/28/2025 8:52 AM COMMERCIAL ENGINEER CBC WITH DIFFERENTIAL Routine 01/27/2025 4:02 AM COMMERCIAL ENGINEER CBC WITH DIFFERENTIAL Routine 01/26/2025 7:56 AM COMMERCIAL ENGINEER C-REACTIVE PROTEIN Stat 01/25/2025 2: 44 PM COMMERCIAL ENGINEER COMPREHENSIVE METABOLIC PANEL Stat 01/25/2025 2:44 PM COMMERCIAL ENGINEER CBC WITH DIFFERENTIAL Stat 01/25/2025 2:44 PM COMMERCIAL ENGINEER URINALYSIS W/REFLEX MICROSCOPIC Stat 01/25/2025 2:03 PM COMMERCIAL ENGINEER from Last 3 Months Results * EXTRA TUBE (GREEN) (01/29/2025 9:45 AM COMMERCIAL ENGINEER) Only the most recent of2 resultswithin the time period is included. Blood Venipuncture / Unknown 01/29/2025 9:45 AM COMMERCIAL ENGINEER 01/29/2025 10:34 AM COMMERCIAL ENGINEER us External Provider [facility] CHEMISTRY ORDERABLES Fin al Result [facility] CLIA# [id number] [address] [place] [address] * (ABNORMAL) CBC WITH DIFFERENTIAL (01/29/2025 6:35 AM COMMERCIAL ENGINEER) Only the most recent of5 resultswithin the time period is included. WBC 9.8 4.0 - 9.8 K/uL 01/29/2025 7:23 AM [facility] RBC 4.11(L) 4.50 - 5.40 M/uL 01/29/2025 7:23 AM COMMERCIAL ENGINEER [facility] HEMOGLOBIN 12.5(L) 13.6 - 16.5 g/dL 01/29/2025 7:23 AM [facility] HEMATOCRIT 37.9(L) 40.0 - 48.0 % 01/29/2025 7:23 AM [facility] MCV 92.2 82.0 - 99.0 fL 01/29/2025 7:23 AM COMMERCIAL ENGINEER [facility] MCH 30.4 27.2 - 32.6 pg 01/29/2025 7:23 AM [facility] MCHC 33.0 31.5 - 35.5 g/dL 01/29/2025 7:23 AM COMMERCIAL ENGINEER [facility] RDW 13.1 11.5 - 14.5 % 01/29/2025 7:23 AM COMMERCIAL ENGINEER [facility] RDW-STDEV 44.5 37.1 - 48.7 fL 01/29/2025 7:23 AM COMMERCIAL ENGINEER [facility] PLATELETS 318 140 - 350 K/uL 01/29/2025 7:23 AM COMMERCIAL ENGINEER [facility] MPV 10.7 9.3 - 12.4 fL 01/29/2025 7:23 AM COMMERCIAL ENGINEER [facility] NEUTROPHILS 74 % 01/29/2025 7:23 AM COMMERCIAL ENGINEER [facility] LYMPHOCYTES 13 % 01/29/2025 7:23 AM [facility] - . [facility] MONOCYTES 10 % 01/29/2025 7:23 AM [facility] EOSINOPHILS 2 % 01/29/2025 7:23 AM [facility] BASOPHILS 0 % 01/29/2025 7:23 AM [facility] - . [facility] IMMATURE GRANULOCYTES 1 % 01/29/2025 7:23 AM [facility] Comment:IG (Immature Granulo cyte) count includes Metamyelocytes, Myelocytes, and Promyelocytes NEUTROPHIL ABSOLUTE 7.29(H) 1.90 - 7.00 K/uL 01/29/2025 7:[address] [facility] LYMPHOCYTE ABSOLUTE 1.25 0.70 - 4.50 K/uL 01/29/2025 7:[address] [facility] MONOCYTE ABSOLUTE 0.97 0.10 - 1.30 K/uL 01/29/2025 7:23 AM [facility] EOSINOPHIL ABSOLUTE 0.22 0.00 - 0.70 K/uL 01/29/2025 7:23 AM [facility] BASOPHILS ABSOLUTE 0.03 0.00 - 0.20 K/uL 01/29/2025 7:[address] [facility] IMMATURE GRANULOCYTES ABSOLUTE 0.05(H) 0.00 - 0.03 K/uL 01/29/2025 7:23 AM [facility] Blood Venipuncture / Unknown 01/29/2025 6:35 AM COMMERCIAL ENGINEER 01/29/2025 7:17 AM COMMERCIAL ENGINEER us Mayte Goldman MD HEMATOLOGY ORDERABLE S Final Result [facility]# [id number] [address] [place] [address] * CT ABSCESS DRAIN PERCUTANEOUS (01/28/2025 3:32 PM COMMERCIAL ENGINEER) Anatomical Region Laterality Modality Computed Tomogra phy 01/28/2025 2:57 PM COMMERCIAL ENGINEER Impressions 01/28/2025 4:36 PM COMMERCIAL ENGINEER IMPRESSION: Successful left pelvic diverticular abscess aspiration and 10 Mauritian drainage catheter placement. PLAN: Maintain to gravity bag drainage. Record output. Flush twice daily with 10 mL normal saline to maintain tube patency. Drain study is recommended in 10-14 days prior to removal (provided the daily output is less than 10-15 mL daily) DICTATION LOCATION: Location 1 - [facility] 01/28/2025 4:[address] GUIDED DIVERTICULAR ABSCESS ASPIRATION AND DRAINAGE CATHETER PLACEMENT DATE: 01/28/2025 3:32 PM HISTORY: abscess, Other - Please see comments, Comment: diverticular abscess Abscess of sigmoid colon due to diverticulitis; Abdominal pain, acute, left lower quadrant ATTENDING RADIOLOGIST: Cleveland Mcgregor MD DESCRIPTION OF PROCEDURE: Informed consent with obtained, including a detailed explanation of the risks and benefits of a diverticular abscess drainage with CT guidance. A timeout was performed. The patient was placed on the CT table in the supine position and the left lower quadrant was prepped and draped in sterile fashion. 1% Lidocaine was used for local skin anesthesia. There was continuous vital sign monitoring by a registered nurse. 50 mcg of fentanyl were given intravenously for analgesia. The CT dose report for the procedure is total DLP: 2372 mGy-cm. From a left anterolateral approach, an 18-gauge needle was introduced into the left pelvic diverticular abscess under intermittent CT guidance. Purulent material was returned. An Amplatz wire was coiled within the abscess cavity. The needle was removed. Tract was sequentially dilated. A 10 Mauritian drainage catheter was advanced over the wire and formed within the cavity. Approximately 60 mL of purulent material was aspirated with specimen sent for culture. It was secured to the skin exit site with a 2-0 silk suture and connected to gravity bag drainage. A limited postprocedure CT was performed and a sterile dressing was applied. FINDINGS: The procedural CT images demonstrate successful left pelvic diverticular abscess aspiration and drainage catheter placement. Final images demonstrate the catheter to be in good position. Procedure Note Cleveland Mcgregor III, MD - 01/28/2025 CT GUIDED DIVERTICULAR ABSCESS ASPIRATION AND DRAINAGE CATHETER PLACEMENT DATE: 01/28/2025 3:32 PM HISTORY: abscess, Other - Please see comments, Comment: diverticular abscess Abscess of sigmoid colon due to diverticulitis; Abdominal pain, acute, left lower quadrant ATTENDING RADIOLOGIST: Cleveland Mcgregor MD DESCRIPTION OF PROCEDURE: Informed consent with obtained, including a detailed explanation of the risks and benefits of a diverticular abscess drainage with CT guidance. A timeout was performed. The patient was placed on the CT table in the supine position and the left lower quadrant was prepped and draped in sterile fashion. 1% Lidocaine was used for local skin anesthesia. There was continuous vital sign monitoring by a registered nurse. 50 mcg of fentanyl were given intravenously for analgesia. The CT dose report for the procedure is total DLP: 2372 mGy-cm. From a left anterolateral approach, an 18-gauge needle was introduced into the left pelvic diverticular abscess under intermittent CT guidance. Purulent material was returned. An Amplatz wire was coiled within the abscess cavity. The needle was removed. Tract was sequentially dilated. A 10 Mauritian drainage catheter was advanced over the wire and formed within the cavity. Approximately 60 mL of purulent material was aspirated with specimen sent for culture. It was secured to the skin exit site with a 2-0 silk suture and connected to gravity bag drainage. A limited postprocedure CT was performed and a sterile dressing was applied. FINDINGS: The procedural CT images demonstrate successful left pelvic diverticular abscess aspiration and drainage catheter placement. Final images demonstrate the catheter to be in good position. IMPRESSION: Successful left pelvic diverticular abscess aspiration and 10 Mauritian drainage catheter placement. PLAN: Maintain to gravity bag drainage. Record output. Flush twice daily with 10 mL normal saline to maintain tube patency. Drain study is recommended in 10-14 days prior to removal (provided the daily output is less than 10-15 mL daily) DICTATION LOCATION: Location 1 - [facility] us Cleveland Mcgregor III, MD CT ORDERABLES Khadijah l Result * (ABNORMAL) ANAEROBIC/AEROBIC CULTURE W GRAM STAIN (01/28/2025 3:19 PM COMMERCIAL ENGINEER) CULTURE ESCHERICHIA COLI(A) REBA MCG/ML 02/04/2025 10:22 AM [facility] CULTURE STREPTOCOCCUS ANGINOSUS(A) REBA MCG/ML 02/04/2025 10:22 AM [facility] CULTURE BACTEROIDES FRAGILIS(A) REBA MCG/ML 02/04/2025 10:22 AM [facility] Comment:Anaerobe therapy rec ommendation: metronidazole. Alternatively: ampicillin/sulbactam or clindamycin. CULTURE 3 to 4+ or numerous Parvimonas micra(A) REBA MCG/ML 02/04/2025 10:22 AM [facility] Comment:Anaerobe therapy rec ommendation: metronidazole. Alternatively: ampicillin/sulbactam or clindamycin. CULTURE STREPTOCOCCUS CONSTELLATUS(A) REBA MCG/ML 02/04/2025 10:22 AM [facility] GRAM STAIN 4+ (Heavy) Gram positive cocci 02/04/2025 10:22 AM [facility] GRAM STAIN 4+ (Heavy) Polymorphonuclear WBC 02/04/2025 10:22 AM [facility] Body fluid ABDOMEN AND PELVIS / Unknown Collection / Unknown 01/28/2025 3:19 PM COMMERCIAL ENGINEER 01/28/2025 3:45 PM COMMERCIAL ENGINEER Narrative Organism Antibiotic Method Susceptibility Escherichia coli CEFTRIAXONE REBA MCG/ML <=1 mcg/mL: Susceptible Escherichia coli CEFTAZIDIME REBA MCG/ML <=1 mcg/mL: Susceptible Escherichia coli CEFOXITIN REBA MCG/ML <=4 mcg/mL: Susceptible Escherichia coli GENTAMICIN REBA MCG/ML <=1 mcg/mL: Susceptible Escherichia coli CIPROFLOXACIN REBA MCG/ML <=0.25 mcg/mL: Susceptible Escherichia coli TRIMETHOPRIM/ SULFAMETHOXAZOLE REBA MCG/ML <=20 mcg/mL: Susceptible Escherichia coli AMPICILLIN REBA MCG/ML 8 mcg/mL: Susceptible Comment:Aminoglycosides shou ld not be used as monotherapy for infections outside the urinary tract. Consultation with an infectious diseases specialist is recommended. Streptococcus anginosus CEFTRIAXONE [facility] Susceptible Streptococcus anginosus VANCOMYCIN [facility] Susceptible Streptococcus anginosus CLINDAMYCIN [facility] Susceptible Streptococcus constellatus BENZYLPENICILLIN REBA MCG/ML 0.12 mcg/mL: Susceptible Streptococcus constellatus AMPICILLIN REBA MCG/ML <=0.25 mcg/mL: Susceptible Streptococcus constellatus CEFTRIAXONE REBA MCG/ML 0.25 mcg/mL: Susceptible Streptococcus constellatus VANCOMYCIN REBA MCG/ML 0.5 mcg/mL: Susceptible Streptococcus constellatus CLINDAMYCIN REBA MCG/ML <=0.25 mcg/mL: Susceptible Cleveland Mcgregor III, MD MICROBIOLOGY - [facility] ORDERABLES Edited Result - Final Performing Organization Address City/[facility]/ZIP Co de Phone Number [facility] [employer] [facility] CLIA# [id number] [address] [place] [address] * (ABNORMAL) C-REACTIVE PROTEIN (01/25/2025 2:44 PM COMMERCIAL ENGINEER) CRP 120.0(H) <5.0 mg/L 01/25/2025 5:47 PM COMMERCIAL ENGINEER [facility] Blood Venipuncture / Unknown 01/25/2025 2:44 PM COMMERCIAL ENGINEER 01/25/2025 3:05 PM COMMERCIAL ENGINEER Naman White MD CHEMISTRY ORDERABLES Final Res ult Performing Organization Address City/[facility]/ZIP Co de Phone Number [facility] CLIA# [id number] [address] [place] [address] * (ABNORMAL) COMPREHENSIVE METABOLIC PANEL (01/25/2025 2:44 PM COMMERCIAL ENGINEER) SODIUM 137 136 - 145 mmol/L 01/25/2025 3:53 PM COMMERCIAL ENGINEER [facility] POTASSIUM 3.4(L) 3.5 - 5.0 mmol/L 01/25/2025 3:53 PM COMMERCIAL ENGINEER [facility] CHLORIDE 102 98 - 107 mmol/L 01/25/2025 3:53 PM COMMERCIAL ENGINEER [facility] CO2 23 22 - 29 mmol/L 01/25/2025 3:53 PM COMMERCIAL ENGINEER [facility] CALCIUM 8.1(L) 8.6 - 10.2 mg/dL 01/25/2025 3:53 PM COMMERCIAL ENGINEER [facility] . [facility] BUN 11 8 - 23 mg/dL 01/25/2025 3:53 PM [facility] CREATININE 0.91 0.67 - 1.17 mg/dL 01/25/2025 3:53 PM [facility] GLUCOSE 100(H) 74 - 99 mg/dL 01/25/2025 3:53 PM [facility] TOTAL PROTEIN 5.8(L) 6.7 - 8.6 g/dL 01/25/2025 3:53 PM [facility] ALBUMIN 3.0(L) 3.5 - 5.2 g/dL 01/25/2025 3:53 PM [facility] BILIRUBIN TOTAL 0.5 0.2 - 1.1 mg/dL 01/25/2025 3:53 PM [facility] ALKALINE PHOSPHATASE 70 40 - 129 U/L 01/25/2025 3:53 PM [facility] AST 16 <41 U/L 01/25/2025 3:53 PM [facility] Comment:Hemolysis present. R esult may be falsely elevated. ALT 10 <42 U/L 01/25/2025 3:53 PM [facility] GFR >60 >=60 mL/min/1.7 3 sq meter 01/25/2025 3:53 PM [facility] Comment:eGFR calculated with 2020 CKD-EPI equation. Vegetarian diet, extremely high or low muscle mass, and may affect results. Cystatin C with Glomerular Filtration Rate is a suitable alternative for these patients. ANION GAP 12 8 - 16 mmol/L 01/25/2025 3:53 PM [facility] Blood Venipuncture / Unknown 01/25/2025 2:44 PM COMMERCIAL ENGINEER 01/25/2025 3:05 PM [facility] - 01/25/2025 3:53 PM [facility] Samples containing indocyanine green cause interferences on Total and/or Direct Bilirubin and must not be measured. us Naman White MD CHEMISTRY ORDERABLES Final Res ult [facility] CLIA# [id number] [address] [place] [address] * (ABNORMAL) URINALYSIS WITH REFLEX MICROSCOPIC (01/25/2025 2:03 PM COMMERCIAL ENGINEER) COLOR UA Yellow Pale to Dark Yellow 01/25/2025 2:21 PM [facility] CLARITY UA Clear Clear 01/25/2025 2:21 PM COMMERCIAL ENGINEER [facility] SPECIFIC GRAVITY UA 1.012 1.003 - 1.035 01/25/2025 2:21 PM [facility] PH UA 8.0 5.0 - 8.0 01/25/2025 2:21 PM [facility] LEUKOCYTE ESTERASE UA Negative Negative 01/25/2025 2:21 PM [facility] NITRITE UA Negative Negative 01/25/2025 2:21 PM [facility] PROTEIN UA Negative Negative 01/25/2025 2:21 PM [facility] GLUCOSE UA Negative Negative 01/25/2025 2:21 PM [facility] KETONES UA Trace(A) Negative 01/25/2025 2:21 PM [facility] UROBILINOGEN UA Normal <2.0 mg/dL 2:21 PM [facility] BILIRUBIN UA Negative Negative 01/25/2025 2:21 PM [facility] BLOOD UA Negative Negative 01/25/2025 2:21 PM [facility] Urine URINE SPECIMEN OBTAINED BY CLEAN CATCH PROCEDURE / Unknown Collection / Unknown 01/25/2025 2:03 PM COMMERCIAL ENGINEER 01/25/2025 2:07 PM COMMERCIAL ENGINEER Naman White MD URINE ORDERABLES Final Result [facility] CLIA# [id number] [address] [place] [address] from Last 3 Months Insurance HEALTH PLAN MEDICAID RX [employer] Commercial RX [employer] (INTERNAL) [facility] Internal Plans Advance Directives For more information, please contact: [phone] * Full Code (Latest Code Status on File) Date Activated Date Inactivated Comments 01/25/2025 9:01 PM 01/29/2025 6:03 PM Care Teams Millinery Blocker Relationship Specialty Start Date End Date Cole Lea MD [address] [place] [id number] PCP - General Family Practice 01/26/25
--- OUTSIDE RECORDS SUMMARY | 2025-02-07 08:04 | XMS_ITS | Encounter Summary ---
Author Organization [facility] Address [address] [place] [address] Care Team Providers Care Promotions Team Leader Name Role Phone Cole Lea MD Primary Care Provider Encounter Details Date Type Department Care Team (Late st Contact Info) Description 02/04/2025 External Device Data [facility] ABSTRACTION Provider, Abstract NO ADDRESS ON FILE Social History Tobacco Use Types Packs/Day Years Used Date Smoking Tobacco: Every Day Cigarettes 1 50.2 Started: 1974 Smokeless Tobacco: Never Alcohol Use Standard Drinks/Week Comments Never 0 [...] on file Legal Sex Male 11:12 AM [employer] Gender Identity Not on file Sexual Orientation Not on file documented as of this encounter Plan of Treatment Upcoming Encounters Date Type Department Care Team (Late st Contact Info) Description 02/10/2025 10:45 AM CDT Office Visit [facility] Tra[facility] General [facility] [address] [address] Kalpana Summers DO [address] [place] [address] documented as of this encounter Visit Diagnoses Not on filedocumented in this encounter Care Teams Promotions Team Leader Relationship Specialty Start Date End Date Cole Lea MD [address] [place] [phone] PCP - General Family Practice 01/26/25 documented as of this encounter
== END 2025-02-07 07:55 | disposition home or self-care (01) ==
LOC: CHSIMG 07:56
PROVIDERS: PCP Family Medicine; Visit Provider Family Medicine
DX: K57.80 Diverticulitis of intestine, part unspecified, with perforation and abscess without bleeding (principal)
CPT/HCPCS: 74177; Q9967